=== PATIENT | female | born 1950 | race Caucasian/White ===

== ENCOUNTER 2023-01-19 14:26 | Outpatient (CLI) | payer MEDICARE, BC | END 2023-01-19 14:27 | disposition home or self-care (01) | LOC: CSHULT 14:26 | PROVIDERS: ATTEND Family Medicine | DX: N63.22 Unspecified lump in the left breast, upper inner quadrant (principal) ==

== ENCOUNTER 2023-09-30 11:56 | Outpatient (CLI) | payer MEDICARE, BC ==
[2023-09-30 13:18] LABS: Hemoglobin 14.8 g/dL (12.0-15.5); Mean Corpuscular HGB CONC 33.6 g/dL (32.0-36.0); Mean Corpuscular Hemoglobin 30.1 pg (27.0-33.0); Mean Corpuscular Volume 89.4 fL (81.6-98.3); Mean Platelet Volume 10.2 fL (7.4-10.4); Platelet Count 281 10x3/uL (150-450); RBC Distribution Width 14.3 % (11.5-14.5); Red Blood Cell (RBC) Count 4.92 10x6/uL (3.90-5.03)
[2023-09-30 13:38] LABS: Anion Gap 14 mmol/L (10-20); BUN (Urea Nitrogen) 12 mg/dL (9.8-20.1); Calc. Creatinine Clearance 0 mL/min (70-130); Calcium 9.3 mg/dL (7.8-10.44); Carbon Dioxide 28 mmol/L (23-31); Chloride 105 mmol/L (98-107); Estimated GFR 85; Glucose 117 mg/dL (83-110); Potassium 3.8 mmol/L (3.5-5.1); Sodium 143 mmol/L (136-145)
== END 2023-09-30 11:57 | disposition home or self-care (01) ==
LOC: CSHLAB 11:56
PROVIDERS: ATTEND Surgery
DX: Z01.812 Encounter for preprocedural laboratory examination (principal); C50.912 Malignant neoplasm of unspecified site of left female breast
CPT/HCPCS: 80048; 85027

== ENCOUNTER 2023-10-04 07:08 | Day surgery (SDC) | payer MEDICARE, BC ==
[2023-09-30 12:51] VITALS: BMI 38.7
[2023-10-04] MEDS ORDERED: Ondansetron PF 4 MG/2 ML Vial ONE ×2 (07:09→10:34)
[2023-10-04] MEDS ORDERED: Isosulfan Blue 50 MG/5 ML VIAL ONE (09:44)
[2023-10-04] MEDS ORDERED: Bupivacaine PF 0.5% 30 ML VIAL ONE (09:44)
[2023-10-04] MEDS ORDERED: EPINEPHrine 1 MG/ML VIAL ONE (09:44)
[2023-10-04] MEDS ORDERED: CEFAZOLIN 2 GM VIAL ONE (10:02)
[2023-10-04] MEDS ORDERED: Scopolamine 1 mg/72 hour Patch ONE (10:33)
[2023-10-04] MEDS ORDERED: Midazolam HCl 2 mg/2 ml Vial ONE (10:33)
[2023-10-04] MEDS ORDERED: Lidocaine 1% PF 5 ML VIAL ONE (10:34)
[2023-10-04] MEDS ORDERED: Dexamethasone 20 MG/5 ML VIAL ONE (10:34)
[2023-10-04] MEDS ORDERED: fentaNYL 50 mcg/mL 1 mL Vial ONE ×5 (10:34→13:02)
[2023-10-04] MEDS ORDERED: PROPOFOL 20 ML ONE (10:34)
[2023-10-04] MEDS ORDERED: HYDROcodone/Acetaminophen 10/325 mg Tablet PO PRN ×2 (12:29)
[2023-10-04] MEDS ORDERED: HYDROcodone/Acetaminophen 5/325 mg Tablet ONE (13:19)
== END 2023-10-04 14:00 | disposition home or self-care (01) ==
LOC: CSHSDC 07:08
PROVIDERS: ATTEND Surgery
PROC: 0HBU0ZZ Excision of Left Breast, Open Approach (ICD-10-PCS; principal; 2023-10-04)
PROC: 0HB5XZX Excision of Chest Skin, External Approach, Diagnostic (ICD-10-PCS; 2023-10-04)
DX: C50.912 Malignant neoplasm of unspecified site of left female breast (principal); I10 Essential (primary) hypertension; J45.909 Unspecified asthma, uncomplicated; Z88.0 Allergy status to penicillin; Z88.1 Allergy status to other antibiotic agents; Z88.6 Allergy status to analgesic agent; Z88.5 Allergy status to narcotic agent; Z88.2 Allergy status to sulfonamides; Z88.3 Allergy status to other anti-infective agents; Z79.899 Other long term (current) drug therapy; Z90.49 Acquired absence of other specified parts of digestive tract; Z90.710 Acquired absence of both cervix and uterus; Z98.890 Other specified postprocedural states; Z91.040 Latex allergy status; Z88.8 Allergy status to other drugs, medicaments and biological substances; Z79.51 Long term (current) use of inhaled steroids
CPT/HCPCS: 19281; 19301; 38525; 38900; 76098; 78195; A9541; C1713; J0171; J0665; J1100; J2250; J2405; J2704; J3010; Q9968; 88305; 88307; 88341; 88342